=== PATIENT | female | born 1945 | race Caucasian/White ===

== ENCOUNTER 2021-08-06 11:49 | Emergency (ER) | payer MEDICARE ==
[~2021-08-06] VITALS: Ht 137.2 cm; Wt 54.9 kg
--- NOTE | 2021-08-06 12:44 | NUR ---
BIB FOR RIGHT FORARM SWELLING S/P FALL 2 WEEKS AGO, C/O BACK PAIN RIGHT FORARM SWELLING S/P FALL 2 WEEKS AGO, C/O BACK PAIN AND RATES PAIN 9/10. NO BLADDER DISTENSION NOTED. WILL CONTINUE TO MONITOR THE PATIENT.
--- NOTE | 2021-08-06 12:54 | NUR ---
URINE COLLECTED AND SENT TO THE LAB
[2021-08-06 13:42] LABS: BILIRUBIN,URINE MODERATE (NEGATIVE); COLOR,URINE RED (YELLOW); LEUKOCYTE ESTERASE ,URINE Negative (NEGATIVE); NITRITE, URINE Negative (NEGATIVE); PROTEIN,URINE >=300 mg/dl (NEGATIVE); UGLUCOSE Negative (NEGATIVE)
[2021-08-06 13:43] LABS: BACTERIA,URINE Few /HPF (None Seen); RBC,URINE TOO NUMEROUS TO COUN /HPF (0-2); SQUAMOUS EPITHELIAL CELL,UR Rare /HPF (None Seen)
--- NOTE | 2021-08-06 14:20 | NUR ---
THE PATIENT IS TAKEN TO CT
--- NOTE | 2021-08-06 14:45 | NUR ---
THE PATIENT IS BACK FROM CT
[2021-08-06] MEDS ORDERED: KETOROLAC TROMETHAMINE INJ 60 MG/2 ML VIAL IM ONE (16:30)
[2021-08-06] MEDS ORDERED: KETOROLAC TROMETHAMINE INJ 30 MG/ML VIAL ONE (16:30)
[2021-08-06] MEDS ORDERED: CEFU500T66 PO (17:02)
--- NOTE | 2021-08-06 17:38 | NUR ---
Patient discharged to home in stable condition. Written and verbal after care instructions given. Patient verbalizes understanding of instruction. The patient is picked up by .
[2021-08-06 17:41] VITALS: BP 125/84
== END 2021-08-06 17:42 | disposition home or self-care (01) ==
LOC: ER 11:56
DX: S52.591A Other fractures of lower end of right radius, initial encounter for closed fracture (principal); S32.038A Other fracture of third lumbar vertebra, initial encounter for closed fracture; N39.0 Urinary tract infection, site not specified; W18.39XA Other fall on same level, initial encounter; Y93.89 Activity, other specified; Y92.89 Other specified places as the place of occurrence of the external cause; Y99.8 Other external cause status
CPT/HCPCS: 29125; 73090; 73110; 74176; 81001; 87086; 99285; J1885

== ENCOUNTER 2023-10-23 16:34 | Inpatient (IN) | payer MEDICARE, OTHER ==
[~2023-10-23] VITALS: Ht 162.6 cm; Wt 35.4 kg
[~2023-10-23 16:34] MED LIST: CEFU500T66 PO
[2023-10-23] MEDS ORDERED: ONDANSETRON HCL/PF 4 MG/2 ML VIAL ONE (16:58)
[2023-10-23] MEDS ORDERED: MORPHINE SULFATE INJ 4 MG/ML DISP.SYRIN ONE (16:59)
[2023-10-23] MEDS ORDERED: ONDANSETRON HCL/PF - ER 4 MG/2 ML VIAL IV ONE (17:00)
[2023-10-23] MEDS ORDERED: MORPHINE SULFATE INJ 2 MG/ML DISP.SYRIN IV ONE (17:00)
[2023-10-23 17:18] LABS: BASOPHILS # (AUTO) 0.1 K/uL (0.0-0.2); BASOPHILS % (AUTO) 0.5 % (0.0-2.0); EOSINOPHILS % (AUTO) 0.2 % (0.0-6.0); HEMATOCRIT 36 % (33-45); HEMOGLOBIN 11.5 g/dL (11.5-14.8); LYMPHOCYTES # (AUTO) 2.4 K/uL (0.8-4.8); LYMPHOCYTES % (AUTO) 14.8 % (20.0-44.0); MEAN CORPUSCULAR HEMOGLOBIN 25 PG (26.0-33.0); MEAN CORPUSCULAR HGB CONC 32 g/dl (31.0-36.0); MEAN CORPUSCULAR VOLUME 80 fL (82-100); MONOCYTES # (AUTO) 1.2 K/uL (0.1-1.30); MONOCYTES % (AUTO) 7.4 % (2.0-12.0); NEUTROPHILS # (AUTO) 12.4 K/uL (1.8-8.9); NEUTROPHILS % (AUTO) 77.1 % (43.0-81.0); PLATELET COUNT (AUTO) 389 K/uL (150-450); RED BLOOD CELL COUNT(AUTO) 4.53 MIL/uL (4.0-5.2); RED CELL DISTRIBUTION WIDTH 15.3 % (11.5-15.0); WHITE BLOOD COUNT (AUTO) 16.1 K/uL (4.3-11.0)
[2023-10-23] MEDS ORDERED: ROSU40TA PO (17:21)
[2023-10-23] MEDS ORDERED: WARF-68 PO (17:21)
[2023-10-23] MEDS ORDERED: ENAL-78 PO (17:21)
[2023-10-23] MEDS ORDERED: CARV6.25 PO (17:21)
[2023-10-23] MEDS ORDERED: WARF3TAB59 PO (17:21)
[2023-10-23 17:24] LABS: CALCIUM, SERUM 9.1 mg/dL (8.5-10.1); CREATININE 0.7 mg/dL (0.6-1.3); POTASSIUM 4.2 mmol/L (3.5-5.1)
[2023-10-23 17:30] LABS: ALBUMIN 3.1 g/dL (3.4-5.0); BILIRUBIN,TOTAL 1.7 mg/dL (0.2-1.0); TOTAL PROTEIN, SERUM 7.4 g/dL (6.4-8.2)
[2023-10-23 18:02] LABS: INR 3.77 (0.91-1.10); PROTHROMBIN TIME 36.6 SECS (9.2-11.1)
[2023-10-23] MEDS ORDERED: ONDANSETRON HCL/PF 4 MG/2 ML VIAL IVP PRN (19:00)
[2023-10-23] MEDS ORDERED: Z GUARD REMEDY 4 OZ OINT TP PRN (19:00)
[2023-10-23] MEDS: IV NS 0.9% 1,000 ML IV PRN (20:44)
[2023-10-23] MEDS: ATORVASTATIN 10 MG TABLET PO SCH (22:49)
[2023-10-24 06:20] LABS: BASOPHILS # (AUTO) 0.1 K/uL (0.0-0.2); BASOPHILS % (AUTO) 0.6 % (0.0-2.0); EOSINOPHILS % (AUTO) 0.1 % (0.0-6.0); HEMATOCRIT 32 % (33-45); HEMOGLOBIN 10.3 g/dL (11.5-14.8); LYMPHOCYTES # (AUTO) 2.1 K/uL (0.8-4.8); LYMPHOCYTES % (AUTO) 19.7 % (20.0-44.0); MEAN CORPUSCULAR HEMOGLOBIN 26 PG (26.0-33.0); MEAN CORPUSCULAR HGB CONC 33 g/dl (31.0-36.0); MEAN CORPUSCULAR VOLUME 79 fL (82-100); MONOCYTES # (AUTO) 1.4 K/uL (0.1-1.30); MONOCYTES % (AUTO) 13.3 % (2.0-12.0); NEUTROPHILS % (AUTO) 66.3 % (43.0-81.0); PLATELET COUNT (AUTO) 319 K/uL (150-450); RED BLOOD CELL COUNT(AUTO) 4.04 MIL/uL (4.0-5.2); WHITE BLOOD COUNT (AUTO) 10.5 K/uL (4.3-11.0)
[2023-10-24 06:38] LABS: CALCIUM, SERUM 8.7 mg/dL (8.5-10.1); CREATININE 0.6 mg/dL (0.6-1.3); MAGNESIUM 2.1 mg/dL (1.8-2.4); PHOSPHORUS 3.9 mg/dL (2.5-4.9)
[2023-10-24 07:30] VITALS: BP 135/75; TEMP 97.4; O2SAT 96
[2023-10-24] MEDS: CARVEDILOL 6.25 MG TABLET PO SCH ×2 (09:00→17:33)
[2023-10-24] MEDS ORDERED: ROPIVACAINE HCL 0.5% 5 MG/ML 30ML VIAL ONE (09:36)
[2023-10-24] MEDS ORDERED: FENTANYL PF 100MCG/2ML AMPUL ONE (09:36)
[2023-10-24] MEDS ORDERED: FAMOTIDINE/PF INJ 20 MG/2 ML VIAL IV ONE (09:37)
[2023-10-24] MEDS ORDERED: BUPIVACAINE 0.5 % PF 150 MG/30 ML VIAL ONE (09:37)
[2023-10-24] MEDS ORDERED: ROCURONIUM BROMIDE 50 MG/5 ML ONE (09:37)
[2023-10-24 11:22] LABS: HEMOGLOBIN 10.3 g/dL (11.5-14.8)
[2023-10-24 11:31] LABS: PARTIAL THROMBOPLASTIN TIME 40.2 SEC (24.3-34.3)
[2023-10-24 11:40] LABS: INR 4.14 (0.91-1.10)
[2023-10-24] MEDS: HYDROCODONE/APAP 5/325MG TABLET PO PRN (12:28)
[2023-10-24 16:30] VITALS: BP 107/78; TEMP 97.9; O2SAT 97
[2023-10-24] MEDS: ENALAPRIL MALEATE (5 MG) 5 MG TABLET PO SCH (17:34)
[2023-10-24] MEDS: CLOTRIMAZOLE 1% 15 GM TUBE TP SCH (17:46)
[2023-10-24] MEDS: IV NS 0.9% 1,000 ML IV PRN (17:47)
[2023-10-24 20:00] VITALS: BP 128/71; TEMP 97.8; O2SAT 97
[2023-10-24] MEDS: ATORVASTATIN 10 MG TABLET PO SCH (21:39)
[2023-10-25] MEDS: HYDROCODONE/APAP 5/325MG TABLET PO PRN ×2 (00:31→12:12)
[2023-10-25] MEDS: IV NS 0.9% 1,000 ML IV PRN (06:05)
[2023-10-25 07:30] VITALS: BP 123/73; TEMP 97.6; O2SAT 97
[2023-10-25 09:21] LABS: PROTHROMBIN TIME 51.7 SECS (9.2-11.1)
[2023-10-25] MEDS: CARVEDILOL 6.25 MG TABLET PO SCH ×2 (09:38→17:11)
[2023-10-25] MEDS: CLOTRIMAZOLE 1% 15 GM TUBE TP SCH ×2 (09:41→17:17)
[2023-10-25 09:47] LABS: INR 5.45 (0.91-1.10)
[2023-10-25] MEDS ORDERED: PHYTONADIONE INJ 10 MG/1 ML AMPUL SQ ONE ×2 (12:00→12:30)
[2023-10-25 12:24] LABS: BASOPHILS % (AUTO) 0.4 % (0.0-2.0); EOSINOPHILS % (AUTO) 0.1 % (0.0-6.0); HEMATOCRIT 30 % (33-45); HEMOGLOBIN 9.2 g/dL (11.5-14.8); LYMPHOCYTES # (AUTO) 1.5 K/uL (0.8-4.8); LYMPHOCYTES % (AUTO) 13.2 % (20.0-44.0); MEAN CORPUSCULAR HEMOGLOBIN 25 PG (26.0-33.0); MEAN CORPUSCULAR HGB CONC 31 g/dl (31.0-36.0); MEAN CORPUSCULAR VOLUME 80 fL (82-100); MONOCYTES # (AUTO) 1.7 K/uL (0.1-1.30); MONOCYTES % (AUTO) 14.9 % (2.0-12.0); NEUTROPHILS # (AUTO) 8.4 K/uL (1.8-8.9); NEUTROPHILS % (AUTO) 71.4 % (43.0-81.0); PLATELET COUNT (AUTO) 324 K/uL (150-450); RED BLOOD CELL COUNT(AUTO) 3.72 MIL/uL (4.0-5.2); RED CELL DISTRIBUTION WIDTH 15.1 % (11.5-15.0); WHITE BLOOD COUNT (AUTO) 11.7 K/uL (4.3-11.0)
[2023-10-25] MEDS ORDERED: PHYTONADIONE INJ 10 MG/1 ML AMPUL IM ONE (12:30)
[2023-10-25 12:41] LABS: ALANINE AMINOTRANSFERASE 11 U/L (12-78); ALBUMIN 2.7 g/dL (3.4-5.0); ALKALINE PHOSPHATASE 74 U/L (46-116); ASPARTATE AMINOTRANSFERASE 16 U/L (15-37); BILIRUBIN,TOTAL 2.2 mg/dL (0.2-1.0); CALCIUM, SERUM 8.4 mg/dL (8.5-10.1); CARBON DIOXIDE 24 mmol/L (21-32); CHLORIDE 106 mmol/L (98-107); CREATININE 0.7 mg/dL (0.6-1.3); GLUCOSE 158 mg/dL (74-106); MAGNESIUM 2.1 mg/dL (1.8-2.4); PHOSPHORUS 2.6 mg/dL (2.5-4.9); SODIUM SERUM 140 mmol/L (136-145); TOTAL PROTEIN, SERUM 6.7 g/dL (6.4-8.2); UREA NITROGEN, BLOOD 20 mg/dL (7-18)
[2023-10-25] MEDS: IV D5/0.45 NACL 1,000 ML IV SCH (12:53)
[2023-10-25] MEDS: ENSURE ENLIVE CHOC 237 ML CAN PO SCH ×2 (12:54→17:17)
[2023-10-25 16:00] VITALS: BP 109/65; TEMP 97.9; O2SAT 96
[2023-10-25] MEDS: ENALAPRIL MALEATE (5 MG) 5 MG TABLET PO SCH (17:11)
[2023-10-25 19:30] VITALS: BP 100/52; TEMP 97.9; O2SAT 96
[2023-10-25] MEDS: ATORVASTATIN 10 MG TABLET PO SCH (21:14)
[2023-10-25] MEDS: ACETAMINOPHEN 325 MG TABLET PO PRN (21:18)
[2023-10-26] VITALS (8 sets, daily range): BP systolic 102–123; BP diastolic 60–89; TEMP 97.5–99; O2SAT 96–99
[2023-10-26] MEDS: IV D5/0.45 NACL 1,000 ML IV SCH (02:25)
[2023-10-26 06:21] LABS: BASOPHILS % (AUTO) 0.4 % (0.0-2.0); EOSINOPHILS % (AUTO) 0.2 % (0.0-6.0); HEMATOCRIT 24 % (33-45); HEMOGLOBIN 8.1 g/dL (11.5-14.8); LYMPHOCYTES # (AUTO) 1.3 K/uL (0.8-4.8); LYMPHOCYTES % (AUTO) 12.5 % (20.0-44.0); MEAN CORPUSCULAR HEMOGLOBIN 26 PG (26.0-33.0); MEAN CORPUSCULAR HGB CONC 33 g/dl (31.0-36.0); MEAN CORPUSCULAR VOLUME 79 fL (82-100); MONOCYTES # (AUTO) 1.4 K/uL (0.1-1.30); MONOCYTES % (AUTO) 12.8 % (2.0-12.0); NEUTROPHILS # (AUTO) 7.9 K/uL (1.8-8.9); NEUTROPHILS % (AUTO) 74.1 % (43.0-81.0); PLATELET COUNT (AUTO) 263 K/uL (150-450); RED BLOOD CELL COUNT(AUTO) 3.09 MIL/uL (4.0-5.2); RED CELL DISTRIBUTION WIDTH 14.6 % (11.5-15.0); WHITE BLOOD COUNT (AUTO) 10.7 K/uL (4.3-11.0)
[2023-10-26 06:34] LABS: INR 1.76 (0.91-1.10)
[2023-10-26 06:52] LABS: CALCIUM, SERUM 8.1 mg/dL (8.5-10.1); CARBON DIOXIDE 26 mmol/L (21-32); CHLORIDE 102 mmol/L (98-107); CREATININE 0.4 mg/dL (0.6-1.3); GLUCOSE 166 mg/dL (74-106); MAGNESIUM 1.9 mg/dL (1.8-2.4); PHOSPHORUS 1.7 mg/dL (2.5-4.9); POTASSIUM 3.2 mmol/L (3.5-5.1); SODIUM SERUM 134 mmol/L (136-145); UREA NITROGEN, BLOOD 13 mg/dL (7-18)
[2023-10-26] MEDS: ENSURE ENLIVE CHOC 237 ML CAN PO SCH ×3 (07:53→17:02)
[2023-10-26] MEDS: POTASSIUM CHLORIDE 20 MEQ POWDER PACKET PO ONE ×2 (09:47→10:32)
[2023-10-26] MEDS: CARVEDILOL 6.25 MG TABLET PO SCH ×2 (09:47→17:00)
[2023-10-26] MEDS: CLOTRIMAZOLE 1% 15 GM TUBE TP SCH ×2 (09:47→17:03)
[2023-10-26] MEDS: POTASSIUM CL. PREMIX PERIPHER. 50 ML IV SCH ×4 (13:13→17:32)
[2023-10-26] MEDS ORDERED: K PHOS NEUTRAL 250 MG TABLET PO ONE (16:30)
[2023-10-26] MEDS: ENALAPRIL MALEATE (5 MG) 5 MG TABLET PO SCH (17:02)
[2023-10-26] MEDS: IV D5/0.45 NACL 1,000 ML IV PRN (17:32)
[2023-10-26] MEDS: ATORVASTATIN 10 MG TABLET PO SCH ×2 (22:00→23:03)
[2023-10-27] VITALS (7 sets, daily range): BP systolic 97–127; BP diastolic 61–75; TEMP 98.2–100.6; O2SAT 88–100
[2023-10-27 01:36] LABS: BASOPHILS % (AUTO) 0.3 % (0.0-2.0); EOSINOPHILS % (AUTO) 0.1 % (0.0-6.0); HEMATOCRIT 32 % (33-45); HEMOGLOBIN 10.7 g/dL (11.5-14.8); LYMPHOCYTES # (AUTO) 1.1 K/uL (0.8-4.8); LYMPHOCYTES % (AUTO) 8.4 % (20.0-44.0); MEAN CORPUSCULAR HEMOGLOBIN 27 PG (26.0-33.0); MEAN CORPUSCULAR HGB CONC 33 g/dl (31.0-36.0); MEAN CORPUSCULAR VOLUME 80 fL (82-100); MONOCYTES # (AUTO) 1.4 K/uL (0.1-1.30); MONOCYTES % (AUTO) 11.2 % (2.0-12.0); NEUTROPHILS # (AUTO) 10.2 K/uL (1.8-8.9); PLATELET COUNT (AUTO) 297 K/uL (150-450); RED BLOOD CELL COUNT(AUTO) 4.02 MIL/uL (4.0-5.2); RED CELL DISTRIBUTION WIDTH 15.7 % (11.5-15.0); WHITE BLOOD COUNT (AUTO) 12.8 K/uL (4.3-11.0)
[2023-10-27 05:52] LABS: BASOPHILS % (AUTO) 0.2 % (0.0-2.0); HEMATOCRIT 35 % (33-45); HEMOGLOBIN 11.3 g/dL (11.5-14.8); LYMPHOCYTES % (AUTO) 7.3 % (20.0-44.0); MEAN CORPUSCULAR HEMOGLOBIN 27 PG (26.0-33.0); MEAN CORPUSCULAR HGB CONC 33 g/dl (31.0-36.0); MEAN CORPUSCULAR VOLUME 81 fL (82-100); MONOCYTES # (AUTO) 1.2 K/uL (0.1-1.30); NEUTROPHILS # (AUTO) 11.3 K/uL (1.8-8.9); NEUTROPHILS % (AUTO) 83.5 % (43.0-81.0); PLATELET COUNT (AUTO) 333 K/uL (150-450); RED BLOOD CELL COUNT(AUTO) 4.26 MIL/uL (4.0-5.2); RED CELL DISTRIBUTION WIDTH 15.6 % (11.5-15.0); WHITE BLOOD COUNT (AUTO) 13.5 K/uL (4.3-11.0)
[2023-10-27 06:01] LABS: CALCIUM, SERUM 8.3 mg/dL (8.5-10.1); CREATININE 0.6 mg/dL (0.6-1.3); POTASSIUM 3.6 mmol/L (3.5-5.1)
[2023-10-27 06:04] LABS: INR 1.1 (0.91-1.10); PROTHROMBIN TIME 11.6 SECS (9.2-11.1)
[2023-10-27] MEDS: ENSURE ENLIVE CHOC 237 ML CAN PO SCH ×3 (08:00→17:00)
[2023-10-27] MEDS: CARVEDILOL 6.25 MG TABLET PO SCH ×2 (09:00→17:00)
[2023-10-27] MEDS: CLOTRIMAZOLE 1% 15 GM TUBE TP SCH ×2 (09:28→18:15)
[2023-10-27] MEDS ORDERED: BUPIVACAINE 0.25% 75 MG/30 ML VIAL ONE (10:03)
[2023-10-27] MEDS: POTASSIUM CL. PREMIX PERIPHER. 50 ML IV SCH ×2 (10:30→11:30)
[2023-10-27] MEDS ORDERED: DOCUSATE SODIUM 100 MG CAPSULE PO PRN (13:00)
[2023-10-27] MEDS ORDERED: BISACODYL SUPP (10 MG) 10 MG/SUPP.RECT SUPP.RECT RC PRN (13:00)
[2023-10-27] MEDS ORDERED: DOCUSATE SODIUM 250 MG CAPSULE PO PRN (13:00)
[2023-10-27] MEDS ORDERED: ONDANSETRON HCL/PF 4 MG/2 ML VIAL IVP PRN (13:00)
[2023-10-27] MEDS ORDERED: HYDROCODONE/APAP 5/325MG TABLET PO PRN ×2 (13:00)
[2023-10-27] MEDS ORDERED: SENNOSIDES 8.6 MG TABLET PO PRN ×2 (13:00)
[2023-10-27 15:37] LABS: HEMOGLOBIN 10.9 g/dL (11.5-14.8)
[2023-10-27] MEDS ORDERED: NALOXONE HCL 0.4 MG/ML AMPUL IV ONE (16:30)
[2023-10-27] MEDS: ENALAPRIL MALEATE (5 MG) 5 MG TABLET PO SCH (18:00)
[2023-10-27] MEDS: ANCEF 1 GM/50 ML D5W IV SCH ×2 (18:14)
[2023-10-27] MEDS: IV D5/0.45 NACL 1,000 ML IV PRN (18:14)
[2023-10-27] MEDS ORDERED: ENOXAPARIN SODIUM 40 MG/0.4 ML DISP.SYRIN SQ SCH (21:00)
[2023-10-27] MEDS: ATORVASTATIN 10 MG TABLET PO SCH (21:37)
[2023-10-28] VITALS (20 sets, daily range): BP systolic 90–128; BP diastolic 59–84; TEMP 97.6–100.5; O2SAT 94–100
[2023-10-28] MEDS: ANCEF 1 GM/50 ML D5W IV SCH ×2 (02:00)
[2023-10-28] MEDS: ENSURE ENLIVE CHOC 237 ML CAN PO SCH ×3 (08:00→17:00)
[2023-10-28] MEDS: CARVEDILOL 6.25 MG TABLET PO SCH ×2 (09:00→17:00)
[2023-10-28] MEDS: ENOXAPARIN SODIUM 40 MG/0.4 ML DISP.SYRIN SQ SCH (09:22)
[2023-10-28 09:27] LABS: HEMATOCRIT 34 % (33-45); HEMOGLOBIN 10.4 g/dL (11.5-14.8); LYMPHOCYTES # (AUTO) 2.1 K/uL (0.8-4.8); LYMPHOCYTES % (AUTO) 12.8 % (20.0-44.0); MEAN CORPUSCULAR HEMOGLOBIN 27 PG (26.0-33.0); MEAN CORPUSCULAR HGB CONC 31 g/dl (31.0-36.0); MEAN CORPUSCULAR VOLUME 87 fL (82-100); MONOCYTES # (AUTO) 2.3 K/uL (0.1-1.30); MONOCYTES % (AUTO) 13.8 % (2.0-12.0); NEUTROPHILS # (AUTO) 12.2 K/uL (1.8-8.9); NEUTROPHILS % (AUTO) 73.4 % (43.0-81.0); PLATELET COUNT (AUTO) 216 K/uL (150-450); RED BLOOD CELL COUNT(AUTO) 3.92 MIL/uL (4.0-5.2); RED CELL DISTRIBUTION WIDTH 16.2 % (11.5-15.0); WHITE BLOOD COUNT (AUTO) 16.7 K/uL (4.3-11.0)
[2023-10-28 09:42] LABS: CALCIUM, SERUM 7.9 mg/dL (8.5-10.1); CARBON DIOXIDE 24 mmol/L (21-32); CHLORIDE 103 mmol/L (98-107); CREATININE 0.4 mg/dL (0.6-1.3); GLUCOSE 194 mg/dL (74-106); POTASSIUM 4.2 mmol/L (3.5-5.1); SODIUM SERUM 133 mmol/L (136-145); UREA NITROGEN, BLOOD 11 mg/dL (7-18)
[2023-10-28 09:45] LABS: MAGNESIUM 1.9 mg/dL (1.8-2.4); PHOSPHORUS 2.1 mg/dL (2.5-4.9)
[2023-10-28 13:08] LABS: APPEARANCE,URINE TURBID (CLEAR); BLOOD, URINE 2+ Ery/uL (NEGATIVE); COLOR,URINE DARK YELLOW (YELLOW); PROTEIN,URINE TRACE mg/dl (NEGATIVE); UGLUCOSE NEGATIVE (NEGATIVE)
[2023-10-28 13:09] LABS: ADD URINE CULTURE YES; BACTERIA,URINE Moderate /HPF (None Seen); BILIRUBIN,URINE NEGATIVE (NEGATIVE); KETONES,URINE TRACE mg/dL (NEGATIVE); LEUKOCYTE ESTERASE ,URINE 3+ (NEGATIVE); NITRITE, URINE NEGATIVE (NEGATIVE); SQUAMOUS EPITHELIAL CELL,UR Rare /HPF (None Seen); UROBILINOGEN,URINE 0.2 EU/dL (0.2); WBC,URINE 51-80 /HPF (0-3)
[2023-10-28] MEDS: ACETAMINOPHEN 650 MG/SUPP.RECT RC PRN (13:41)
[2023-10-28] MEDS: CEFTRIAXONE 1 G in IV D5W 50 ML IV SCH (13:47)
[2023-10-28] MEDS: MORPHINE SULFATE INJ 2 MG/ML DISP.SYRIN IV PRN (13:48)
[2023-10-28] MEDS: FUROSEMIDE 20 MG/2 ML VIAL IV SCH (13:48)
[2023-10-28] MEDS: IV D5/0.45 NACL 1,000 ML IV PRN (14:11)
[2023-10-28] MEDS: CLOTRIMAZOLE 1% 15 GM TUBE TP SCH ×2 (14:12→17:57)
[2023-10-28] MEDS ORDERED: Sodium Phosphate 15 MMOL in IV NS 0.9% 245 ML IV SCH (17:00)
[2023-10-28] MEDS: ENALAPRIL MALEATE (5 MG) 5 MG TABLET PO SCH (17:57)
[2023-10-28] MEDS: ATORVASTATIN 10 MG TABLET PO SCH (21:11)
[2023-10-28] MEDS ORDERED: LORAZEPAM INJ 2 MG/ML VIAL IM/IV PRN (23:30)
[2023-10-29] MEDS: IV D5/0.45 NACL 1,000 ML IV PRN ×2 (05:46→19:50)
[2023-10-29] MEDS: MORPHINE SULFATE INJ 2 MG/ML DISP.SYRIN IV PRN (05:47)
[2023-10-29 08:00] VITALS: BP 108/77; TEMP 97.7; O2SAT 98
[2023-10-29] MEDS: ENSURE ENLIVE CHOC 237 ML CAN PO SCH ×3 (08:00→16:59)
[2023-10-29] MEDS: CARVEDILOL 6.25 MG TABLET PO SCH ×2 (09:00→16:59)
[2023-10-29] MEDS: FUROSEMIDE 20 MG/2 ML VIAL IV SCH (10:58)
[2023-10-29] MEDS: ENOXAPARIN SODIUM 40 MG/0.4 ML DISP.SYRIN SQ SCH (10:59)
[2023-10-29] MEDS: CLOTRIMAZOLE 1% 15 GM TUBE TP SCH ×2 (11:56→17:01)
[2023-10-29 13:09] LABS: BASOPHILS % (AUTO) 0.2 % (0.0-2.0); EOSINOPHILS % (AUTO) 0.1 % (0.0-6.0); HEMATOCRIT 32 % (33-45); HEMOGLOBIN 9.9 g/dL (11.5-14.8); LYMPHOCYTES # (AUTO) 1.5 K/uL (0.8-4.8); LYMPHOCYTES % (AUTO) 8.3 % (20.0-44.0); MEAN CORPUSCULAR HEMOGLOBIN 27 PG (26.0-33.0); MEAN CORPUSCULAR HGB CONC 31 g/dl (31.0-36.0); MEAN CORPUSCULAR VOLUME 87 fL (82-100); MONOCYTES # (AUTO) 1.8 K/uL (0.1-1.30); MONOCYTES % (AUTO) 10.1 % (2.0-12.0); NEUTROPHILS # (AUTO) 14.6 K/uL (1.8-8.9); NEUTROPHILS % (AUTO) 81.3 % (43.0-81.0); PLATELET COUNT (AUTO) 313 K/uL (150-450); RED BLOOD CELL COUNT(AUTO) 3.73 MIL/uL (4.0-5.2); RED CELL DISTRIBUTION WIDTH 16.8 % (11.5-15.0)
[2023-10-29 13:24] LABS: CARBON DIOXIDE 24 mmol/L (21-32); CHLORIDE 100 mmol/L (98-107); CREATININE 0.4 mg/dL (0.6-1.3); GLUCOSE 172 mg/dL (74-106); MAGNESIUM 1.8 mg/dL (1.8-2.4); PHOSPHORUS 2.4 mg/dL (2.5-4.9); POTASSIUM 2.9 mmol/L (3.5-5.1); SODIUM SERUM 133 mmol/L (136-145); UREA NITROGEN, BLOOD 10 mg/dL (7-18)
[2023-10-29] MEDS: CEFTRIAXONE 1 G in IV D5W 50 ML IV SCH (13:56)
[2023-10-29 15:00] VITALS: BP 108/84; TEMP 98.3; O2SAT 97
[2023-10-29] MEDS: POTASSIUM CHLORIDE 10 MEQ/50 ML PREMIXED IVPB FOR PERIPHERAL LINE IV SCH ×5 (16:21→20:47)
[2023-10-29] MEDS: ENALAPRIL MALEATE (5 MG) 5 MG TABLET PO SCH (18:00)
[2023-10-29] MEDS ORDERED: Sodium Phosphate 15 MMOL in IV NS 0.9% 245 ML IV ONE (21:00)
[2023-10-29] MEDS: ATORVASTATIN 10 MG TABLET PO SCH (21:14)
[2023-10-30] MEDS: POTASSIUM CHLORIDE 10 MEQ/50 ML PREMIXED IVPB FOR PERIPHERAL LINE IV SCH (00:06)
[2023-10-30 08:00] VITALS: BP 119/92; TEMP 96.4; O2SAT 98
[2023-10-30] MEDS: ENSURE ENLIVE CHOC 237 ML CAN PO SCH ×3 (08:00→17:00)
[2023-10-30 08:30] LABS: CALCIUM, SERUM 7.8 mg/dL (8.5-10.1); CARBON DIOXIDE 25 mmol/L (21-32); CHLORIDE 101 mmol/L (98-107); CREATININE 0.4 mg/dL (0.6-1.3); GLUCOSE 123 mg/dL (74-106); MAGNESIUM 1.9 mg/dL (1.8-2.4); PHOSPHORUS 2.8 mg/dL (2.5-4.9); POTASSIUM 3.9 mmol/L (3.5-5.1); SODIUM SERUM 135 mmol/L (136-145); UREA NITROGEN, BLOOD 8 mg/dL (7-18)
[2023-10-30] MEDS: CARVEDILOL 6.25 MG TABLET PO SCH ×2 (08:31→17:00)
[2023-10-30] MEDS: ENOXAPARIN SODIUM 40 MG/0.4 ML DISP.SYRIN SQ SCH (08:33)
[2023-10-30] MEDS: CLOTRIMAZOLE 1% 15 GM TUBE TP SCH ×2 (08:35→19:30)
[2023-10-30] MEDS: FUROSEMIDE 20 MG/2 ML VIAL IV SCH (08:35)
[2023-10-30] MEDS: CEFTRIAXONE 1 G in IV D5W 50 ML IV SCH (13:32)
[2023-10-30] MEDS: ACETAMINOPHEN 650 MG/SUPP.RECT RC PRN (17:38)
[2023-10-30] MEDS: ENALAPRIL MALEATE (5 MG) 5 MG TABLET PO SCH (18:00)
[2023-10-30] MEDS: IV D5/0.45 NACL 1,000 ML IV PRN (19:36)
[2023-10-30 20:00] VITALS: BP 104/78; TEMP 98; O2SAT 98
[2023-10-30 20:18] LABS: BASOPHILS # (AUTO) 0.1 K/uL (0.0-0.2); BASOPHILS % (AUTO) 0.7 % (0.0-2.0); EOSINOPHILS % (AUTO) 0.2 % (0.0-6.0); HEMATOCRIT 28 % (33-45); HEMOGLOBIN 8.9 g/dL (11.5-14.8); LYMPHOCYTES # (AUTO) 1.9 K/uL (0.8-4.8); LYMPHOCYTES % (AUTO) 13.7 % (20.0-44.0); MEAN CORPUSCULAR HEMOGLOBIN 27 PG (26.0-33.0); MEAN CORPUSCULAR HGB CONC 32 g/dl (31.0-36.0); MEAN CORPUSCULAR VOLUME 83 fL (82-100); MONOCYTES # (AUTO) 1.5 K/uL (0.1-1.30); MONOCYTES % (AUTO) 10.7 % (2.0-12.0); NEUTROPHILS # (AUTO) 10.5 K/uL (1.8-8.9); NEUTROPHILS % (AUTO) 74.7 % (43.0-81.0); PLATELET COUNT (AUTO) 254 K/uL (150-450); RED BLOOD CELL COUNT(AUTO) 3.31 MIL/uL (4.0-5.2); RED CELL DISTRIBUTION WIDTH 16.7 % (11.5-15.0)
[2023-10-30 20:43] LABS: ANISOCYTOSIS 1+; LYMPHOCYTES % (MANUAL) 18 % (16-48); MONOCYTES % (MANUAL) 8 % (0-11.0); NEUTROPHILS % (MANUAL) 74 (42-76); PLATELET ESTIMATE ADEQUATE; ROULEAUX 1+
[2023-10-30] MEDS: ATORVASTATIN 10 MG TABLET PO SCH (22:00)
[2023-10-31] VITALS: BP 111/83; TEMP 97.8; O2SAT 97
[2023-10-31 06:44] LABS: BASOPHILS % (AUTO) 0.1 % (0.0-2.0); EOSINOPHILS % (AUTO) 0.3 % (0.0-6.0); HEMATOCRIT 27 % (33-45); LYMPHOCYTES # (AUTO) 1.8 K/uL (0.8-4.8); LYMPHOCYTES % (AUTO) 13.5 % (20.0-44.0); MEAN CORPUSCULAR HEMOGLOBIN 27 PG (26.0-33.0); MEAN CORPUSCULAR HGB CONC 33 g/dl (31.0-36.0); MEAN CORPUSCULAR VOLUME 82 fL (82-100); MONOCYTES # (AUTO) 1.7 K/uL (0.1-1.30); MONOCYTES % (AUTO) 12.8 % (2.0-12.0); NEUTROPHILS % (AUTO) 73.3 % (43.0-81.0); PLATELET COUNT (AUTO) 312 K/uL (150-450); RED BLOOD CELL COUNT(AUTO) 3.29 MIL/uL (4.0-5.2); RED CELL DISTRIBUTION WIDTH 16.6 % (11.5-15.0); WHITE BLOOD COUNT (AUTO) 13.6 K/uL (4.3-11.0)
[2023-10-31 07:03] LABS: CALCIUM, SERUM 7.9 mg/dL (8.5-10.1); CARBON DIOXIDE 31 mmol/L (21-32); CHLORIDE 96 mmol/L (98-107); CREATININE 0.4 mg/dL (0.6-1.3); GLUCOSE 111 mg/dL (74-106); MAGNESIUM 1.7 mg/dL (1.8-2.4); PHOSPHORUS 2.1 mg/dL (2.5-4.9); POTASSIUM 2.9 mmol/L (3.5-5.1); SODIUM SERUM 134 mmol/L (136-145); UREA NITROGEN, BLOOD 7 mg/dL (7-18)
[2023-10-31] MEDS: ENSURE ENLIVE CHOC 237 ML CAN PO SCH ×3 (07:17→16:35)
[2023-10-31 07:30] VITALS: BP 107/75; TEMP 97.5; O2SAT 100
[2023-10-31] MEDS: FUROSEMIDE 20 MG/2 ML VIAL IV SCH (09:00)
[2023-10-31] MEDS: CARVEDILOL 6.25 MG TABLET PO SCH ×2 (09:00→16:35)
[2023-10-31] MEDS: ENOXAPARIN SODIUM 40 MG/0.4 ML DISP.SYRIN SQ SCH (09:38)
[2023-10-31] MEDS: CLOTRIMAZOLE 1% 15 GM TUBE TP SCH ×2 (09:38→17:13)
[2023-10-31] MEDS: POTASSIUM CL. PREMIX PERIPHER. 50 ML IV SCH ×6 (12:38→19:09)
[2023-10-31] MEDS: CEFTRIAXONE 1 G in IV D5W 50 ML IV SCH (13:51)
[2023-10-31 16:00] VITALS: BP 121/73; TEMP 98.8; O2SAT 96
[2023-10-31] MEDS ORDERED: Sodium Phosphate 15 MMOL in IV NS 0.9% 245 ML IV SCH (16:00)
[2023-10-31] MEDS ORDERED: FUROSEMIDE 20 MG TABLET PO SCH (17:00)
[2023-10-31] MEDS: ENALAPRIL MALEATE (5 MG) 5 MG TABLET PO SCH (17:13)
[2023-10-31 20:00] VITALS: BP 116/62; TEMP 97.9; O2SAT 99
[2023-10-31] MEDS: Magnesium 1GM/D5W 100ML PREMIX 100 ML IV SCH ×2 (20:28→21:37)
[2023-10-31] MEDS: ATORVASTATIN 10 MG TABLET PO SCH (21:09)
[2023-11-01] MEDS: IV D5/0.45 NACL 1,000 ML IV PRN (05:28)
[2023-11-01 06:06] LABS: BASOPHILS % (AUTO) 0.2 % (0.0-2.0); EOSINOPHILS # (AUTO) 0.1 K/uL (0.0-0.7); EOSINOPHILS % (AUTO) 0.5 % (0.0-6.0); HEMATOCRIT 26 % (33-45); HEMOGLOBIN 8.4 g/dL (11.5-14.8); LYMPHOCYTES # (AUTO) 2.1 K/uL (0.8-4.8); LYMPHOCYTES % (AUTO) 19.6 % (20.0-44.0); MEAN CORPUSCULAR HEMOGLOBIN 27 PG (26.0-33.0); MEAN CORPUSCULAR HGB CONC 33 g/dl (31.0-36.0); MEAN CORPUSCULAR VOLUME 83 fL (82-100); MONOCYTES # (AUTO) 1.2 K/uL (0.1-1.30); MONOCYTES % (AUTO) 11.2 % (2.0-12.0); NEUTROPHILS # (AUTO) 7.2 K/uL (1.8-8.9); NEUTROPHILS % (AUTO) 68.5 % (43.0-81.0); PLATELET COUNT (AUTO) 352 K/uL (150-450); RED CELL DISTRIBUTION WIDTH 16.9 % (11.5-15.0); WHITE BLOOD COUNT (AUTO) 10.5 K/uL (4.3-11.0)
[2023-11-01 06:16] LABS: CALCIUM, SERUM 7.8 mg/dL (8.5-10.1); CARBON DIOXIDE 31 mmol/L (21-32); CHLORIDE 99 mmol/L (98-107); CREATININE 0.4 mg/dL (0.6-1.3); GLUCOSE 144 mg/dL (74-106); MAGNESIUM 2.3 mg/dL (1.8-2.4); PHOSPHORUS 2.2 mg/dL (2.5-4.9); POTASSIUM 3.4 mmol/L (3.5-5.1); SODIUM SERUM 134 mmol/L (136-145); UREA NITROGEN, BLOOD 6 mg/dL (7-18)
[2023-11-01 08:00] VITALS: BP 119/64; TEMP 98.2; O2SAT 98
[2023-11-01] MEDS: ENSURE ENLIVE CHOC 237 ML CAN PO SCH ×3 (08:00→16:13)
[2023-11-01] MEDS: FUROSEMIDE 20 MG/2 ML VIAL IV SCH (08:52)
[2023-11-01] MEDS: ENOXAPARIN SODIUM 40 MG/0.4 ML DISP.SYRIN SQ SCH (08:55)
[2023-11-01] MEDS: CLOTRIMAZOLE 1% 15 GM TUBE TP SCH ×2 (08:56→16:13)
[2023-11-01] MEDS: CARVEDILOL 6.25 MG TABLET PO SCH ×2 (08:56→16:12)
[2023-11-01] MEDS: POTASSIUM CL. PREMIX PERIPHER. 50 ML IV SCH ×2 (11:46→12:58)
[2023-11-01] MEDS: CEFTRIAXONE 1 G in IV D5W 50 ML IV SCH (12:56)
[2023-11-01] MEDS: MEROPENEM 500 MG in IV NS 0.9% 50 ML IV SCH ×2 (15:50→20:02)
[2023-11-01 16:00] VITALS: BP 110/73; TEMP 98.4; O2SAT 96
[2023-11-01] MEDS ORDERED: Sodium Phosphate 15 MMOL in IV NS 0.9% 245 ML IV ONE (16:00)
[2023-11-01] MEDS: ENALAPRIL MALEATE (5 MG) 5 MG TABLET PO SCH (17:42)
[2023-11-01 20:00] VITALS: BP 114/72; TEMP 98.1; O2SAT 96
[2023-11-01] MEDS: ATORVASTATIN 10 MG TABLET PO SCH (21:18)
[2023-11-02] VITALS: BP 117/70; TEMP 97.7; O2SAT 99
[2023-11-02] MEDS: IV D5/0.45 NACL 1,000 ML IV PRN ×2 (02:03→19:22)
[2023-11-02 04:00] VITALS: BP 118/75; TEMP 98.6; O2SAT 95
[2023-11-02] MEDS: MEROPENEM 500 MG in IV NS 0.9% 50 ML IV SCH ×3 (05:19→20:21)
[2023-11-02 06:16] LABS: BASOPHILS % (AUTO) 0.2 % (0.0-2.0); EOSINOPHILS % (AUTO) 0.4 % (0.0-6.0); HEMATOCRIT 27 % (33-45); HEMOGLOBIN 8.5 g/dL (11.5-14.8); LYMPHOCYTES # (AUTO) 1.1 K/uL (0.8-4.8); LYMPHOCYTES % (AUTO) 12.9 % (20.0-44.0); MEAN CORPUSCULAR HEMOGLOBIN 27 PG (26.0-33.0); MEAN CORPUSCULAR HGB CONC 32 g/dl (31.0-36.0); MEAN CORPUSCULAR VOLUME 84 fL (82-100); MONOCYTES % (AUTO) 10.9 % (2.0-12.0); NEUTROPHILS # (AUTO) 6.7 K/uL (1.8-8.9); NEUTROPHILS % (AUTO) 75.6 % (43.0-81.0); PLATELET COUNT (AUTO) 349 K/uL (150-450); RED BLOOD CELL COUNT(AUTO) 3.18 MIL/uL (4.0-5.2); RED CELL DISTRIBUTION WIDTH 17.8 % (11.5-15.0); WHITE BLOOD COUNT (AUTO) 8.8 K/uL (4.3-11.0)
[2023-11-02 06:44] LABS: CALCIUM, SERUM 7.9 mg/dL (8.5-10.1); CARBON DIOXIDE 30 mmol/L (21-32); CHLORIDE 96 mmol/L (98-107); CREATININE 0.4 mg/dL (0.6-1.3); GLUCOSE 148 mg/dL (74-106); POTASSIUM 3.2 mmol/L (3.5-5.1); SODIUM SERUM 132 mmol/L (136-145); UREA NITROGEN, BLOOD 4 mg/dL (7-18)
[2023-11-02 06:51] LABS: INR 1.38 (0.91-1.10); PROTHROMBIN TIME 14.3 SECS (9.2-11.1)
[2023-11-02 08:00] VITALS: BP 115/44; TEMP 98.1; O2SAT 96
[2023-11-02] MEDS: ENSURE ENLIVE CHOC 237 ML CAN PO SCH ×2 (08:00→11:59)
[2023-11-02] MEDS: CARVEDILOL 6.25 MG TABLET PO SCH ×2 (09:00→16:56)
[2023-11-02] MEDS: ENOXAPARIN SODIUM 40 MG/0.4 ML DISP.SYRIN SQ SCH (09:00)
[2023-11-02] MEDS: FUROSEMIDE 20 MG/2 ML VIAL IV SCH (09:16)
[2023-11-02] MEDS: CLOTRIMAZOLE 1% 15 GM TUBE TP SCH ×2 (09:17→16:57)
[2023-11-02] MEDS: POTASSIUM CL. PREMIX PERIPHER. 50 ML IV SCH ×4 (10:55→14:35)
[2023-11-02 15:42] VITALS: BP 125/75; TEMP 97.8; O2SAT 98
[2023-11-02] MEDS: ENALAPRIL MALEATE (5 MG) 5 MG TABLET PO SCH (18:00)
[2023-11-02 20:00] VITALS: BP_SYST 122; BP_DIAS 65; BP_DIAS 69; TEMP 98.4; O2SAT 98
[2023-11-02] MEDS: ATORVASTATIN 10 MG TABLET PO SCH (21:55)
[2023-11-03] VITALS: BP 142/82; TEMP 98.1; O2SAT 93
[2023-11-03 04:00] VITALS: BP 115/96; TEMP 97.5; O2SAT 95
[2023-11-03] MEDS: MEROPENEM 500 MG in IV NS 0.9% 50 ML IV SCH ×3 (04:26→21:07)
[2023-11-03 07:00] VITALS: BP 110/77; TEMP 97.5; O2SAT 98
[2023-11-03 07:43] LABS: BASOPHILS % (AUTO) 0.2 % (0.0-2.0); EOSINOPHILS # (AUTO) 0.1 K/uL (0.0-0.7); EOSINOPHILS % (AUTO) 0.4 % (0.0-6.0); HEMATOCRIT 30 % (33-45); HEMOGLOBIN 9.5 g/dL (11.5-14.8); LYMPHOCYTES # (AUTO) 2.2 K/uL (0.8-4.8); LYMPHOCYTES % (AUTO) 14.2 % (20.0-44.0); MEAN CORPUSCULAR HEMOGLOBIN 27 PG (26.0-33.0); MEAN CORPUSCULAR HGB CONC 32 g/dl (31.0-36.0); MEAN CORPUSCULAR VOLUME 85 fL (82-100); MONOCYTES # (AUTO) 1.5 K/uL (0.1-1.30); MONOCYTES % (AUTO) 9.9 % (2.0-12.0); NEUTROPHILS # (AUTO) 11.8 K/uL (1.8-8.9); NEUTROPHILS % (AUTO) 75.3 % (43.0-81.0); PLATELET COUNT (AUTO) 360 K/uL (150-450); RED BLOOD CELL COUNT(AUTO) 3.52 MIL/uL (4.0-5.2); RED CELL DISTRIBUTION WIDTH 17.3 % (11.5-15.0); WHITE BLOOD COUNT (AUTO) 15.6 K/uL (4.3-11.0)
[2023-11-03 07:51] LABS: INR 1.38 (0.91-1.10); PROTHROMBIN TIME 14.3 SECS (9.2-11.1)
[2023-11-03 07:56] LABS: CALCIUM, SERUM 7.7 mg/dL (8.5-10.1); CARBON DIOXIDE 25 mmol/L (21-32); CHLORIDE 96 mmol/L (98-107); CREATININE 0.4 mg/dL (0.6-1.3); GLUCOSE 143 mg/dL (74-106); SODIUM SERUM 127 mmol/L (136-145); UREA NITROGEN, BLOOD 4 mg/dL (7-18)
[2023-11-03] MEDS: ENOXAPARIN SODIUM 40 MG/0.4 ML DISP.SYRIN SQ SCH (09:00)
[2023-11-03] MEDS ORDERED: IV NS 0.9% 1,000 ML IV PRN (09:00)
[2023-11-03] MEDS: CARVEDILOL 6.25 MG TABLET PO SCH ×2 (09:00→17:00)
[2023-11-03] MEDS ORDERED: TPN/PPN PER PHARMACY IV PRN (09:00)
[2023-11-03] MEDS: FUROSEMIDE 20 MG/2 ML VIAL IV SCH (09:25)
[2023-11-03] MEDS ORDERED: DEXTROSE 50%-WATER 50 ML DISP.SYRIN IV PRN (09:30)
[2023-11-03] MEDS ORDERED: INSULIN REGULAR, HUMAN 100 UNIT/ML 3 ML VIAL SQ PRN (09:30)
[2023-11-03 09:40] LABS: PHOSPHORUS 2.4 mg/dL (2.5-4.9)
[2023-11-03] MEDS: CLOTRIMAZOLE 1% 15 GM TUBE TP SCH ×2 (10:40→17:33)
[2023-11-03] MEDS: IV D5/ 0.9% NACL 1,000 ML IV PRN (11:38)
[2023-11-03] MEDS ORDERED: BLOOD SUGAR DIAGNOSTIC 1 EACH STRIP IN SCH (12:00)
[2023-11-03] MEDS: ACETAMINOPHEN 650 MG/SUPP.RECT RC PRN (12:59)
[2023-11-03] MEDS ORDERED: TPN#1 IV SCH ×4 (14:00)
[2023-11-03 16:00] VITALS: BP 110/78; TEMP 97.6; O2SAT 95
[2023-11-03] MEDS: ENALAPRIL MALEATE (5 MG) 5 MG TABLET PO SCH (17:33)
[2023-11-03] MEDS ORDERED: TPN/PPN PER PHARMACY XX PRN (19:00)
[2023-11-03] MEDS: ATORVASTATIN 10 MG TABLET PO SCH (23:07)
[2023-11-04 01:18] VITALS: BP 120/76; O2SAT 100
[2023-11-04] MEDS: MEROPENEM 500 MG in IV NS 0.9% 50 ML IV SCH ×3 (06:00→20:48)
[2023-11-04] MEDS: IV D5/ 0.9% NACL 1,000 ML IV PRN (06:11)
[2023-11-04 06:59] LABS: BASOPHILS % (AUTO) 0.3 % (0.0-2.0); EOSINOPHILS # (AUTO) 0.1 K/uL (0.0-0.7); EOSINOPHILS % (AUTO) 0.6 % (0.0-6.0); HEMATOCRIT 32 % (33-45); HEMOGLOBIN 10.3 g/dL (11.5-14.8); LYMPHOCYTES # (AUTO) 1.6 K/uL (0.8-4.8); LYMPHOCYTES % (AUTO) 13.8 % (20.0-44.0); MEAN CORPUSCULAR HEMOGLOBIN 27 PG (26.0-33.0); MEAN CORPUSCULAR HGB CONC 32 g/dl (31.0-36.0); MEAN CORPUSCULAR VOLUME 84 fL (82-100); MONOCYTES # (AUTO) 0.9 K/uL (0.1-1.30); MONOCYTES % (AUTO) 7.8 % (2.0-12.0); NEUTROPHILS # (AUTO) 9.3 K/uL (1.8-8.9); NEUTROPHILS % (AUTO) 77.5 % (43.0-81.0); PLATELET COUNT (AUTO) 425 K/uL (150-450); RED BLOOD CELL COUNT(AUTO) 3.84 MIL/uL (4.0-5.2); RED CELL DISTRIBUTION WIDTH 18.8 % (11.5-15.0); WHITE BLOOD COUNT (AUTO) 11.9 K/uL (4.3-11.0)
[2023-11-04 07:43] LABS: THYROID STIMULATING HORMONE 2.65 uIU/mL (0.358-3.74); URIC ACID 1.7 mg/dL (2.6-7.2)
[2023-11-04] MEDS: CARVEDILOL 6.25 MG TABLET PO SCH ×2 (09:00→17:00)
[2023-11-04] MEDS: ENOXAPARIN SODIUM 40 MG/0.4 ML DISP.SYRIN SQ SCH (09:00)
[2023-11-04] MEDS: VALPROATE 250 MG in IV D5W 100 ML IV SCH ×2 (09:15→18:41)
[2023-11-04] MEDS: CLOTRIMAZOLE 1% 15 GM TUBE TP SCH ×2 (09:44→17:00)
[2023-11-04 15:24] VITALS: BP 123/79; TEMP 97.9; O2SAT 93
[2023-11-04] MEDS: ENALAPRIL MALEATE (5 MG) 5 MG TABLET PO SCH (17:26)
[2023-11-04 20:00] VITALS: BP 128/71; TEMP 97.9; O2SAT 98
[2023-11-04] MEDS: PANTOPRAZOLE 40 MG VIAL IV SCH (20:30)
[2023-11-04] MEDS: ATORVASTATIN 10 MG TABLET PO SCH (22:43)
[2023-11-05] MEDS: VALPROATE 250 MG in IV D5W 100 ML IV SCH ×2 (02:01→10:10)
[2023-11-05] MEDS: MEROPENEM 500 MG in IV NS 0.9% 50 ML IV SCH (04:51)
[2023-11-05 07:30] VITALS: BP 126/88; TEMP 97.5; O2SAT 97
[2023-11-05 07:49] LABS: BASOPHILS % (AUTO) 0.3 % (0.0-2.0); EOSINOPHILS # (AUTO) 0.1 K/uL (0.0-0.7); EOSINOPHILS % (AUTO) 0.5 % (0.0-6.0); HEMATOCRIT 27 % (33-45); HEMOGLOBIN 8.8 g/dL (11.5-14.8); LYMPHOCYTES # (AUTO) 2.1 K/uL (0.8-4.8); LYMPHOCYTES % (AUTO) 12.9 % (20.0-44.0); MEAN CORPUSCULAR HEMOGLOBIN 27 PG (26.0-33.0); MEAN CORPUSCULAR HGB CONC 33 g/dl (31.0-36.0); MEAN CORPUSCULAR VOLUME 83 fL (82-100); MONOCYTES # (AUTO) 1.1 K/uL (0.1-1.30); MONOCYTES % (AUTO) 6.9 % (2.0-12.0); NEUTROPHILS % (AUTO) 79.4 % (43.0-81.0); PLATELET COUNT (AUTO) 445 K/uL (150-450); RED BLOOD CELL COUNT(AUTO) 3.23 MIL/uL (4.0-5.2); RED CELL DISTRIBUTION WIDTH 18.4 % (11.5-15.0); WHITE BLOOD COUNT (AUTO) 16.3 K/uL (4.3-11.0)
[2023-11-05 08:18] LABS: ALANINE AMINOTRANSFERASE < 6 U/L (12-78); ALBUMIN 1.8 g/dL (3.4-5.0); ALKALINE PHOSPHATASE 106 U/L (46-116); ASPARTATE AMINOTRANSFERASE 17 U/L (15-37); BILIRUBIN,TOTAL 2.3 mg/dL (0.2-1.0); CALCIUM, SERUM 8.1 mg/dL (8.5-10.1); CARBON DIOXIDE 29 mmol/L (21-32); CHLORIDE 95 mmol/L (98-107); CREATININE 0.5 mg/dL (0.6-1.3); GLUCOSE 80 mg/dL (74-106); POTASSIUM 3.1 mmol/L (3.5-5.1); SODIUM SERUM 130 mmol/L (136-145); UREA NITROGEN, BLOOD 4 mg/dL (7-18)
[2023-11-05] MEDS: PANTOPRAZOLE 40 MG VIAL IV SCH ×2 (08:59→18:13)
[2023-11-05] MEDS: CARVEDILOL 6.25 MG TABLET PO SCH ×2 (09:00→18:14)
[2023-11-05] MEDS: ENOXAPARIN SODIUM 40 MG/0.4 ML DISP.SYRIN SQ SCH (09:02)
[2023-11-05] MEDS: CLOTRIMAZOLE 1% 15 GM TUBE TP SCH ×2 (09:03→18:14)
[2023-11-05] MEDS: POTASSIUM CL. PREMIX PERIPHER. 50 ML IV SCH ×2 (10:52→11:33)
[2023-11-05] MEDS ORDERED: MAGNESIUM OXIDE 400 MG TABLET GT ONE (11:00)
[2023-11-05] MEDS ORDERED: DIVALPROEX SODIUM 125 MG CAP.SPRINK GT SCH (11:00)
[2023-11-05] MEDS ORDERED: POTASSIUM CHLORIDE 20 MEQ POWDER PACKET GT ONE ×2 (11:00→15:00)
[2023-11-05] MEDS ORDERED: JEVITY 1.2 CAL 1,000 ML BOTTLE GT PRN ×2 (11:00→12:00)
[2023-11-05] MEDS: NITROFURANTOIN/MONOHYDRATE MACROCRYSTALS 100 MG CAPSULE NG SCH ×2 (11:11→22:20)
[2023-11-05] MEDS: VALPROIC ACID 250 MG/5 ML UDC GT SCH ×2 (13:08→22:21)
[2023-11-05] MEDS ORDERED: POTASSIUM CHLORIDE 20 MEQ TAB.PRT.SR PO ONE (14:00)
[2023-11-05] MEDS ORDERED: POTASSIUM CHLORIDE 10 MEQ TABLET.SA PO ONE (14:00)
[2023-11-05 16:00] VITALS: BP 102/63; TEMP 97.5; O2SAT 94
[2023-11-05] MEDS: ENALAPRIL MALEATE (5 MG) 5 MG TABLET PO SCH (18:00)
[2023-11-05] MEDS: ARGININE/GLUTAMINE/CALCIUM BMB 1 EACH POWD.PACK GT SCH (18:15)
[2023-11-05 20:00] VITALS: BP 100/55; TEMP 98.7; O2SAT 95
[2023-11-05] MEDS: ATORVASTATIN 10 MG TABLET PO SCH (22:20)
[2023-11-06] MEDS: ACETAMINOPHEN 325 MG TABLET PO PRN ×2 (03:12→10:33)
[2023-11-06] MEDS: VALPROIC ACID 250 MG/5 ML UDC GT SCH ×2 (05:51→13:44)
[2023-11-06 07:00] LABS: BASOPHILS % (AUTO) 0.3 % (0.0-2.0); EOSINOPHILS # (AUTO) 0.1 K/uL (0.0-0.7); EOSINOPHILS % (AUTO) 0.6 % (0.0-6.0); HEMATOCRIT 25 % (33-45); HEMOGLOBIN 8.2 g/dL (11.5-14.8); LYMPHOCYTES # (AUTO) 1.5 K/uL (0.8-4.8); MEAN CORPUSCULAR HEMOGLOBIN 27 PG (26.0-33.0); MEAN CORPUSCULAR HGB CONC 32 g/dl (31.0-36.0); MEAN CORPUSCULAR VOLUME 85 fL (82-100); MONOCYTES % (AUTO) 8.6 % (2.0-12.0); NEUTROPHILS # (AUTO) 8.8 K/uL (1.8-8.9); NEUTROPHILS % (AUTO) 77.5 % (43.0-81.0); PLATELET COUNT (AUTO) 341 K/uL (150-450); RED CELL DISTRIBUTION WIDTH 19.1 % (11.5-15.0); WHITE BLOOD COUNT (AUTO) 11.3 K/uL (4.3-11.0)
[2023-11-06 07:17] LABS: ALANINE AMINOTRANSFERASE < 6 U/L (12-78); ALKALINE PHOSPHATASE 106 U/L (46-116); ASPARTATE AMINOTRANSFERASE 13 U/L (15-37); BILIRUBIN,TOTAL 1.6 mg/dL (0.2-1.0); CARBON DIOXIDE 28 mmol/L (21-32); CHLORIDE 98 mmol/L (98-107); CREATININE 0.4 mg/dL (0.6-1.3); GLUCOSE 185 mg/dL (74-106); POTASSIUM 4.1 mmol/L (3.5-5.1); SODIUM SERUM 128 mmol/L (136-145); TOTAL PROTEIN, SERUM 5.2 g/dL (6.4-8.2); UREA NITROGEN, BLOOD 15 mg/dL (7-18)
[2023-11-06 07:23] LABS: ALBUMIN 1.4 g/dL (3.4-5.0)
[2023-11-06 08:00] VITALS: BP 111/58; TEMP 97.9; O2SAT 97
[2023-11-06] MEDS: PANTOPRAZOLE 40 MG VIAL IV SCH (10:32)
[2023-11-06] MEDS: NITROFURANTOIN/MONOHYDRATE MACROCRYSTALS 100 MG CAPSULE NG SCH (10:32)
[2023-11-06] MEDS: ARGININE/GLUTAMINE/CALCIUM BMB 1 EACH POWD.PACK GT SCH (10:32)
[2023-11-06 10:33] VITALS: BP 111/58
[2023-11-06] MEDS: CARVEDILOL 6.25 MG TABLET PO SCH (10:33)
[2023-11-06] MEDS: CLOTRIMAZOLE 1% 15 GM TUBE TP SCH (10:33)
[2023-11-06] MEDS: ENOXAPARIN SODIUM 40 MG/0.4 ML DISP.SYRIN SQ SCH (10:34)
== END 2023-11-06 15:45 | DRG 480 ==
LOC: ER 16:41 → MED 19:36 → TELE 10-27 13:18 → ICU 10-27 16:36 → TELE 10-28 18:41 → MED 10-29 19:47
PROVIDERS: ADMIT Nurse Practitioner Acute Care; ATTEND Nurse Practitioner Acute Care
PROC: 05H533Z Insertion of Infusion Device into Right Subclavian Vein, Percutaneous Approach (ICD-10-PCS; 2023-10-26)
PROC: B546ZZA Ultrasonography of Right Subclavian Vein, Guidance (ICD-10-PCS; 2023-10-26)
PROC: 30233N1 Transfusion of Nonautologous Red Blood Cells into Peripheral Vein, Percutaneous Approach (ICD-10-PCS; 2023-10-26)
PROC: 0QS606Z Reposition Right Upper Femur with Intramedullary Internal Fixation Device, Open Approach (ICD-10-PCS; principal; 2023-10-27)
PROC: 05H533Z Insertion of Infusion Device into Right Subclavian Vein, Percutaneous Approach (ICD-10-PCS; 2023-10-31)
PROC: B546ZZA Ultrasonography of Right Subclavian Vein, Guidance (ICD-10-PCS; 2023-10-31)
PROC: 0DH63UZ Insertion of Feeding Device into Stomach, Percutaneous Approach (ICD-10-PCS; 2023-11-04)
DX: S72.141A Displaced intertrochanteric fracture of right femur, initial encounter for closed fracture (principal); E43 Unspecified severe protein-calorie malnutrition; J96.01 Acute respiratory failure with hypoxia; G93.41 Metabolic encephalopathy; I50.23 Acute on chronic systolic (congestive) heart failure; J69.0 Pneumonitis due to inhalation of food and vomit; R64 Cachexia; E87.1 Hypo-osmolality and hyponatremia; I42.9 Cardiomyopathy, unspecified; N39.0 Urinary tract infection, site not specified; Z16.24 Resistance to multiple antibiotics; E22.2 Syndrome of inappropriate secretion of antidiuretic hormone; F05 Delirium due to known physiological condition; Z68.1 Body mass index [BMI] 19.9 or less, adult; D72.829 Elevated white blood cell count, unspecified; I11.0 Hypertensive heart disease with heart failure; B96.20 Unspecified Escherichia coli [E. coli] as the cause of diseases classified elsewhere; E83.39 Other disorders of phosphorus metabolism; E87.6 Hypokalemia; E88.09 Other disorders of plasma-protein metabolism, not elsewhere classified; F02.80 Dementia in other diseases classified elsewhere, unspecified severity, without behavioral disturbance, psychotic disturbance, mood disturbance, and anxiety; G30.9 Alzheimer's disease, unspecified; R13.10 Dysphagia, unspecified; R62.7 Adult failure to thrive; Z79.01 Long term (current) use of anticoagulants; Z87.440 Personal history of urinary (tract) infections; K29.70 Gastritis, unspecified, without bleeding; R79.1 Abnormal coagulation profile; Z91.81 History of falling; Z95.828 Presence of other vascular implants and grafts; E80.6 Other disorders of bilirubin metabolism; W01.0XXA Fall on same level from slipping, tripping and stumbling without subsequent striking against object, initial encounter; K26.9 Duodenal ulcer, unspecified as acute or chronic, without hemorrhage or perforation; Y93.9 Activity, unspecified; Y92.009 Unspecified place in unspecified non-institutional (private) residence as the place of occurrence of the external cause; K20.90 Esophagitis, unspecified without bleeding; M62.50 Muscle wasting and atrophy, not elsewhere classified, unspecified site
CPT/HCPCS: 36410; 36415; 43246; 71045-TC; 72170-TC; 73501; 73502; 80048-TC; 80053-TC; 81001; 82040-TC; 82962-TC; 83735-TC; 84100-TC; 84443-TC; 84550-TC; 85025-TC; 85027-TC; 85610-TC; 85730-TC; 86850-TC; 87081-TC; 87086-TC; 92526; 92611-TC; 93307-TC; 97110-TC; 97116-TC; 97530-TC; A4223; A6209; A6253; A6403; A9563; C1713; C9113; G0378; J0461; J0690; J0696; J1650; J1815; J1940; J2185; J2270; J2310; J2405; J2704; J2795; J3010; J3430; J3475; J3480; J3490; J7030; J7040; J7042; J7050; J7060; P9016

== ENCOUNTER 2023-11-07 01:08 | Emergency (ER) | payer MEDICARE ==
[~2023-11-07] VITALS: Ht 162.6 cm; Wt 44.9 kg
[~2023-11-07 01:08] MED LIST changes: +CARV6.25 PO; -CEFU500T66 PO; +ENAL-78 PO; +ROSU40TA PO
[2023-11-07] MEDS ORDERED: DIATR MEGLU/DIATRIZOATE SODIUM 30 ML BOTTLE (GASTROGRAPHIN) ONE (01:40)
[2023-11-07 09:26] VITALS: BP 122/63; TEMP 97.8; O2SAT 98
== END 2023-11-07 09:28 ==
LOC: ER 01:11
DX: K94.23 Gastrostomy malfunction (principal)
CPT/HCPCS: 99284; 43762; 74018; Q9963

== ENCOUNTER 2023-11-07 20:23 | Emergency (ER) | payer MEDICARE ==
[~2023-11-07] VITALS: Ht 162.6 cm; Wt 44.9 kg
[2023-11-07 20:53] VITALS: BP 128/67; TEMP 98.7; O2SAT 99
[2023-11-07] MEDS ORDERED: DIATR MEGLU/DIATRIZOATE SODIUM 30 ML BOTTLE (GASTROGRAPHIN) ONE (21:04)
== END 2023-11-08 00:47 ==
LOC: ER 20:25
DX: K94.23 Gastrostomy malfunction (principal)
CPT/HCPCS: 99284; 43762; 74018; Q9963